=== PATIENT | female | born 1965 | race Caucasian/White ===

== ENCOUNTER 2018-10-05 03:59 | Emergency (ER) | payer MEDICAID ==
[~2018-10-05] VITALS: Ht 175.3 cm; Wt 113.8 kg
[~2018-10-05 03:59] MED LIST: HYDR25TA4 PO; METO-477 PO
[2018-10-05 04:11] VITALS: BP 200/116
[2018-10-05] MEDS ORDERED: bacitracin 15gm ointment TP ONE (04:35)
== END 2018-10-05 04:50 | disposition home or self-care (01) ==
LOC: ER 03:59
DX: S91.302A Unspecified open wound, left foot, initial encounter (principal); R60.0 Localized edema; I87.8 Other specified disorders of veins; I10 Essential (primary) hypertension; Z79.899 Other long term (current) drug therapy; Z90.49 Acquired absence of other specified parts of digestive tract; Z90.710 Acquired absence of both cervix and uterus; Z90.89 Acquired absence of other organs; W20.8XXA Other cause of strike by thrown, projected or falling object, initial encounter; Y93.89 Activity, other specified; Y92.89 Other specified places as the place of occurrence of the external cause; Y99.8 Other external cause status
CPT/HCPCS: 99282

== ENCOUNTER 2019-08-02 10:05 | Day surgery (SDC) | payer MEDICAID ==
[2019-08-02] MEDS ORDERED: LIDOcaine 2% 5ml jelly ONE ×2 (10:52→11:34)
== END 2019-08-02 12:04 | disposition home or self-care (01) ==
LOC: WOUND CARE 10:05
PROVIDERS: ATTEND Surgery
DX: I83.023 Varicose veins of left lower extremity with ulcer of ankle (principal); L97.322 Non-pressure chronic ulcer of left ankle with fat layer exposed; I10 Essential (primary) hypertension; I87.8 Other specified disorders of veins; F17.200 Nicotine dependence, unspecified, uncomplicated; Z90.710 Acquired absence of both cervix and uterus; Z90.49 Acquired absence of other specified parts of digestive tract; Z79.899 Other long term (current) drug therapy
CPT/HCPCS: 97597; A4663; A6021; A6154; A6441

== ENCOUNTER 2019-08-09 11:10 | Outpatient (CLI) | payer MEDICAID | END 2019-08-09 13:00 | disposition home or self-care (01) | LOC: WOUND CARE 11:10 | PROVIDERS: ATTEND Surgery | DX: I83.023 Varicose veins of left lower extremity with ulcer of ankle (principal); L97.322 Non-pressure chronic ulcer of left ankle with fat layer exposed; I10 Essential (primary) hypertension; I87.8 Other specified disorders of veins; F17.200 Nicotine dependence, unspecified, uncomplicated; Z90.710 Acquired absence of both cervix and uterus; Z90.49 Acquired absence of other specified parts of digestive tract; Z79.899 Other long term (current) drug therapy | CPT/HCPCS: 29581; 93970; A4663; A6021; A6154; A6441 ==

== ENCOUNTER 2019-08-16 11:05 | Day surgery (SDC) | payer MEDICAID ==
[2019-08-16] MEDS ORDERED: LIDOcaine 2% 5ml jelly ONE (12:06)
== END 2019-08-16 13:04 | disposition home or self-care (01) ==
LOC: WOUND CARE 11:05
PROVIDERS: ATTEND Surgery
DX: I83.023 Varicose veins of left lower extremity with ulcer of ankle (principal); L97.322 Non-pressure chronic ulcer of left ankle with fat layer exposed; I10 Essential (primary) hypertension; I87.8 Other specified disorders of veins; F17.200 Nicotine dependence, unspecified, uncomplicated; Z90.710 Acquired absence of both cervix and uterus; Z90.49 Acquired absence of other specified parts of digestive tract
CPT/HCPCS: 97597; A4663; A6021; A6154; A6441

== ENCOUNTER 2019-08-23 10:25 | Day surgery (SDC) | payer MEDICAID ==
[2019-08-23] MEDS ORDERED: LIDOcaine 2% 5ml jelly ONE ×2 (11:48→12:40)
== END 2019-08-23 12:59 | disposition home or self-care (01) ==
LOC: WOUND CARE 10:25
PROVIDERS: ATTEND Surgery
DX: I83.023 Varicose veins of left lower extremity with ulcer of ankle (principal); L97.322 Non-pressure chronic ulcer of left ankle with fat layer exposed; I10 Essential (primary) hypertension; I87.8 Other specified disorders of veins; F17.200 Nicotine dependence, unspecified, uncomplicated; Z90.710 Acquired absence of both cervix and uterus; Z90.49 Acquired absence of other specified parts of digestive tract; Z79.899 Other long term (current) drug therapy
CPT/HCPCS: 97597; A4663; A6021; A6154; A6446

== ENCOUNTER 2019-08-26 11:37 | Day surgery (SDC) | payer MEDICAID ==
[2019-08-26] MEDS ORDERED: LIDOcaine 2% 5ml jelly ONE (12:07)
[2019-08-26] MEDS ORDERED: mupirocin 2% ointment 22GM ONE (12:22)
== END 2019-08-26 12:38 | disposition home or self-care (01) ==
LOC: WOUND CARE 11:37
PROVIDERS: ATTEND Surgery
DX: I83.023 Varicose veins of left lower extremity with ulcer of ankle (principal); L97.322 Non-pressure chronic ulcer of left ankle with fat layer exposed; I10 Essential (primary) hypertension; I87.8 Other specified disorders of veins; F17.200 Nicotine dependence, unspecified, uncomplicated; Z90.710 Acquired absence of both cervix and uterus; Z90.49 Acquired absence of other specified parts of digestive tract; Z79.899 Other long term (current) drug therapy
CPT/HCPCS: 97597; A4663; A6021; A6154; A6441

== ENCOUNTER 2019-08-30 10:40 | Day surgery (SDC) | payer MEDICAID ==
[2019-08-30] MEDS ORDERED: LIDOcaine 2% 5ml jelly ONE (11:14)
== END 2019-08-30 12:05 | disposition home or self-care (01) ==
LOC: WOUND CARE 10:40
PROVIDERS: ATTEND Surgery
DX: I83.023 Varicose veins of left lower extremity with ulcer of ankle (principal); L97.322 Non-pressure chronic ulcer of left ankle with fat layer exposed; I10 Essential (primary) hypertension; I87.8 Other specified disorders of veins; F17.200 Nicotine dependence, unspecified, uncomplicated; Z90.710 Acquired absence of both cervix and uterus; Z90.49 Acquired absence of other specified parts of digestive tract; Z79.899 Other long term (current) drug therapy
CPT/HCPCS: A4663; A6021; A6154; A6441

== ENCOUNTER 2019-09-02 10:45 | Day surgery (SDC) | payer MEDICAID ==
[2019-09-02] MEDS ORDERED: LIDOcaine 2% 5ml jelly ONE (11:30)
== END 2019-09-02 12:05 | disposition home or self-care (01) ==
LOC: WOUND CARE 10:45
PROVIDERS: ATTEND Surgery
DX: I83.023 Varicose veins of left lower extremity with ulcer of ankle (principal); L97.322 Non-pressure chronic ulcer of left ankle with fat layer exposed; I10 Essential (primary) hypertension; I87.8 Other specified disorders of veins; F17.200 Nicotine dependence, unspecified, uncomplicated; Z90.710 Acquired absence of both cervix and uterus; Z90.49 Acquired absence of other specified parts of digestive tract; Z79.899 Other long term (current) drug therapy
CPT/HCPCS: 97597; A4663; A6154; A6441

== ENCOUNTER 2019-09-06 10:40 | Day surgery (SDC) | payer MEDICAID ==
[2019-09-06] MEDS ORDERED: LIDOcaine 2% 5ml jelly ONE (12:23)
== END 2019-09-06 13:20 | disposition home or self-care (01) ==
LOC: WOUND CARE 10:40
PROVIDERS: ATTEND Surgery
DX: I83.023 Varicose veins of left lower extremity with ulcer of ankle (principal); L97.322 Non-pressure chronic ulcer of left ankle with fat layer exposed; I10 Essential (primary) hypertension; I87.8 Other specified disorders of veins; F17.200 Nicotine dependence, unspecified, uncomplicated; Z90.710 Acquired absence of both cervix and uterus; Z90.49 Acquired absence of other specified parts of digestive tract; Z79.899 Other long term (current) drug therapy
CPT/HCPCS: A4663; A6021; A6154; A6441

== ENCOUNTER 2019-09-13 10:50 | Day surgery (SDC) | payer MEDICAID ==
[2019-09-13] MEDS ORDERED: LIDOcaine 2% 5ml jelly ONE (12:10)
== END 2019-09-13 12:53 | disposition home or self-care (01) ==
LOC: WOUND CARE 10:50
PROVIDERS: ATTEND Surgery
DX: I83.023 Varicose veins of left lower extremity with ulcer of ankle (principal); L97.322 Non-pressure chronic ulcer of left ankle with fat layer exposed; I10 Essential (primary) hypertension; I87.8 Other specified disorders of veins; F17.200 Nicotine dependence, unspecified, uncomplicated; Z90.710 Acquired absence of both cervix and uterus; Z90.49 Acquired absence of other specified parts of digestive tract; Z79.899 Other long term (current) drug therapy
CPT/HCPCS: 97597; A4663; A6021; A6154; A6441

== ENCOUNTER 2019-09-16 10:40 | Outpatient (CLI) | payer MEDICAID | END 2019-09-16 12:26 | disposition home or self-care (01) | LOC: WOUND CARE 10:40 | PROVIDERS: ATTEND Surgery | DX: I83.023 Varicose veins of left lower extremity with ulcer of ankle (principal); L97.322 Non-pressure chronic ulcer of left ankle with fat layer exposed; I10 Essential (primary) hypertension; I87.8 Other specified disorders of veins; F17.200 Nicotine dependence, unspecified, uncomplicated; Z90.710 Acquired absence of both cervix and uterus; Z90.49 Acquired absence of other specified parts of digestive tract; Z79.899 Other long term (current) drug therapy | CPT/HCPCS: 29581; A4663; A6021; A6154; A6441 ==

== ENCOUNTER 2019-09-20 10:47 | Day surgery (SDC) | payer MEDICAID ==
[2019-09-20] MEDS ORDERED: LIDOcaine 2% 5ml jelly ONE (11:43)
== END 2019-09-20 12:40 | disposition home or self-care (01) ==
LOC: WOUND CARE 10:47
PROVIDERS: ATTEND Surgery
DX: I83.023 Varicose veins of left lower extremity with ulcer of ankle (principal); L97.322 Non-pressure chronic ulcer of left ankle with fat layer exposed; I10 Essential (primary) hypertension; I87.8 Other specified disorders of veins; F17.200 Nicotine dependence, unspecified, uncomplicated; Z90.710 Acquired absence of both cervix and uterus; Z90.49 Acquired absence of other specified parts of digestive tract; Z79.899 Other long term (current) drug therapy
CPT/HCPCS: 15271; A6209; A6222; Q4101; A4663; A6250; A6441

== ENCOUNTER 2019-09-23 10:48 | Day surgery (SDC) | payer MEDICAID | END 2019-09-23 12:33 | disposition home or self-care (01) | LOC: WOUND CARE 10:48 | PROVIDERS: ATTEND Surgery | DX: I83.023 Varicose veins of left lower extremity with ulcer of ankle (principal); L97.322 Non-pressure chronic ulcer of left ankle with fat layer exposed; I10 Essential (primary) hypertension; I87.8 Other specified disorders of veins; F17.200 Nicotine dependence, unspecified, uncomplicated; Z90.710 Acquired absence of both cervix and uterus; Z90.49 Acquired absence of other specified parts of digestive tract; Z79.899 Other long term (current) drug therapy | CPT/HCPCS: 29581; A4663; A6441 ==

== ENCOUNTER 2019-09-27 10:31 | Day surgery (SDC) | payer MEDICAID ==
[2019-09-27] MEDS ORDERED: LIDOcaine 2% 5ml jelly ONE (12:08)
== END 2019-09-27 13:14 | disposition home or self-care (01) ==
LOC: WOUND CARE 10:31
PROVIDERS: ATTEND Surgery
DX: I83.023 Varicose veins of left lower extremity with ulcer of ankle (principal); L97.322 Non-pressure chronic ulcer of left ankle with fat layer exposed; I10 Essential (primary) hypertension; I87.8 Other specified disorders of veins; F17.200 Nicotine dependence, unspecified, uncomplicated; Z90.710 Acquired absence of both cervix and uterus; Z90.49 Acquired absence of other specified parts of digestive tract; Z79.899 Other long term (current) drug therapy
CPT/HCPCS: 29581; A4663; A6021; A6154; A6441

== ENCOUNTER 2019-09-30 10:37 | Day surgery (SDC) | payer MEDICAID ==
[2019-09-30] MEDS ORDERED: LIDOcaine 2% 5ml jelly ONE (12:04)
[2019-09-30] MEDS ORDERED: hydrocortisone 1% cream 28gm TP ONE (12:44)
== END 2019-09-30 13:00 | disposition home or self-care (01) ==
LOC: WOUND CARE 10:37
PROVIDERS: ATTEND Surgery
DX: I83.023 Varicose veins of left lower extremity with ulcer of ankle (principal); L97.322 Non-pressure chronic ulcer of left ankle with fat layer exposed; I10 Essential (primary) hypertension; I87.8 Other specified disorders of veins; F17.200 Nicotine dependence, unspecified, uncomplicated; Z90.710 Acquired absence of both cervix and uterus; Z90.49 Acquired absence of other specified parts of digestive tract; Z79.899 Other long term (current) drug therapy
CPT/HCPCS: 97597; A4663; A6021; A6154; A6441

== ENCOUNTER 2019-10-06 10:37 | Day surgery (SDC) | payer MEDICAID ==
[2019-10-06] MEDS ORDERED: LIDOcaine 2% 5ml jelly ONE (10:51)
== END 2019-10-06 11:52 | disposition home or self-care (01) ==
LOC: WOUND CARE 10:37
PROVIDERS: ATTEND Surgery
DX: I83.023 Varicose veins of left lower extremity with ulcer of ankle (principal); L97.322 Non-pressure chronic ulcer of left ankle with fat layer exposed; I10 Essential (primary) hypertension; I87.2 Venous insufficiency (chronic) (peripheral); F17.200 Nicotine dependence, unspecified, uncomplicated; Z90.710 Acquired absence of both cervix and uterus; Z90.49 Acquired absence of other specified parts of digestive tract; Z79.899 Other long term (current) drug therapy
CPT/HCPCS: 97597; A4663; A6021; A6154; A6441

== ENCOUNTER 2019-10-14 10:48 | Day surgery (SDC) | payer MEDICAID ==
[2019-10-14] MEDS ORDERED: LIDOcaine 2% 5ml jelly ONE (11:21)
== END 2019-10-14 12:41 | disposition home or self-care (01) ==
LOC: WOUND CARE 10:48
PROVIDERS: ATTEND Surgery
DX: I83.023 Varicose veins of left lower extremity with ulcer of ankle (principal); L97.322 Non-pressure chronic ulcer of left ankle with fat layer exposed; I10 Essential (primary) hypertension; I87.2 Venous insufficiency (chronic) (peripheral); F17.200 Nicotine dependence, unspecified, uncomplicated; Z90.710 Acquired absence of both cervix and uterus; Z90.49 Acquired absence of other specified parts of digestive tract; Z79.899 Other long term (current) drug therapy
CPT/HCPCS: 15271; A6209; A6222; Q4101; A4663; A6250; A6441

== ENCOUNTER 2019-10-21 10:20 | Outpatient (CLI) | payer MEDICAID ==
[2019-10-21] MEDS ORDERED: hydrocortisone 1% cream 28gm TP ONE (11:13)
== END 2019-10-21 11:28 | disposition home or self-care (01) ==
LOC: WOUND CARE 10:20 → EDSTATUS 10:30 → WOUND CARE 11:28
PROVIDERS: ATTEND Surgery
DX: I83.023 Varicose veins of left lower extremity with ulcer of ankle (principal); L97.322 Non-pressure chronic ulcer of left ankle with fat layer exposed; I10 Essential (primary) hypertension; I87.2 Venous insufficiency (chronic) (peripheral); F17.200 Nicotine dependence, unspecified, uncomplicated; Z90.710 Acquired absence of both cervix and uterus; Z90.49 Acquired absence of other specified parts of digestive tract; Z79.899 Other long term (current) drug therapy
CPT/HCPCS: 29581; A6222; A4663; A6441

== ENCOUNTER 2019-10-28 10:10 | Outpatient (CLI) | payer MEDICAID | END 2019-10-28 10:50 | disposition home or self-care (01) | LOC: WOUND CARE 10:10 | PROVIDERS: ATTEND Surgery | DX: I83.023 Varicose veins of left lower extremity with ulcer of ankle (principal); L97.322 Non-pressure chronic ulcer of left ankle with fat layer exposed; I10 Essential (primary) hypertension; I87.2 Venous insufficiency (chronic) (peripheral); F17.200 Nicotine dependence, unspecified, uncomplicated; Z90.710 Acquired absence of both cervix and uterus; Z90.49 Acquired absence of other specified parts of digestive tract; Z79.899 Other long term (current) drug therapy | CPT/HCPCS: A4663; G0463 ==

== ENCOUNTER 2019-10-30 02:09 | Emergency (ER) | payer MEDICAID ==
[~2019-10-30] VITALS: Ht 175.3 cm; Wt 112.8 kg
[2019-10-30 05:38] VITALS: BP 180/97
--- NOTE | 2019-10-30 06:39 | NUR ---
NOTICED PT AND LEAVING THE ER, APPROCHED THEM ASKED THEM IF SHE HAD BEEN DC FROM THE ER. THE PT WAS OUTSIDE AND THE STATES SHE WAS DISCHARGED AND THEY JUST SIGNED HER PAPERWORK. PER REG ALL PAPERWORK HAS BEEN SIGNED FOR THEM. NOTIFIED DR KINCAID TO INQUIRE IF PT HAS BEEN DCD HE STATES HE JUST WENT IN TO SEE HE AND JUST PLACED ORDERS. PT ELOPED
== END 2019-10-30 07:11 | disposition left against medical advice (07) ==
LOC: ER 02:09
DX: I87.8 Other specified disorders of veins (principal); L97.328 Non-pressure chronic ulcer of left ankle with other specified severity; I10 Essential (primary) hypertension; F17.200 Nicotine dependence, unspecified, uncomplicated; Z90.49 Acquired absence of other specified parts of digestive tract; Z90.710 Acquired absence of both cervix and uterus; Z90.89 Acquired absence of other organs; Z79.899 Other long term (current) drug therapy
CPT/HCPCS: 99281

== ENCOUNTER 2019-11-10 05:20 | Emergency (ER) | payer MEDICAID ==
[~2019-11-10] VITALS: Ht 172.7 cm; Wt 102.3 kg
[2019-11-10 05:22] VITALS: BP 174/118
[2019-11-10] MEDS ORDERED: CEPH500C5 PO (06:20)
[2019-11-10] MEDS ORDERED: PRED20TA PO (06:20)
[2019-11-10] MEDS ORDERED: SULF1TAB49 PO (06:20)
== END 2019-11-10 06:41 | disposition home or self-care (01) ==
LOC: ER 05:21
DX: L03.116 Cellulitis of left lower limb (principal); L97.929 Non-pressure chronic ulcer of unspecified part of left lower leg with unspecified severity; I10 Essential (primary) hypertension; F17.200 Nicotine dependence, unspecified, uncomplicated; Z90.49 Acquired absence of other specified parts of digestive tract; Z90.710 Acquired absence of both cervix and uterus; Z98.51 Tubal ligation status; Z79.899 Other long term (current) drug therapy
CPT/HCPCS: 99283

== ENCOUNTER 2019-11-29 10:15 | Day surgery (SDC) | payer MEDICAID ==
[2019-11-29] MEDS ORDERED: hydrocortisone 1% cream 28gm TP ONE (12:14)
== END 2019-11-29 12:30 | disposition home or self-care (01) ==
LOC: WOUND CARE 10:15
PROVIDERS: ATTEND Surgery
DX: I83.023 Varicose veins of left lower extremity with ulcer of ankle (principal); L97.322 Non-pressure chronic ulcer of left ankle with fat layer exposed; I10 Essential (primary) hypertension; I87.2 Venous insufficiency (chronic) (peripheral); F17.200 Nicotine dependence, unspecified, uncomplicated; Z90.710 Acquired absence of both cervix and uterus; Z90.49 Acquired absence of other specified parts of digestive tract; Z79.899 Other long term (current) drug therapy
CPT/HCPCS: 97597; A4663; A6021; A6154; A6441

== ENCOUNTER 2019-12-05 11:42 | Emergency (ER) | payer MEDICAID ==
[~2019-12-05] VITALS: Ht 172.7 cm; Wt 113.6 kg
[2019-12-05 11:44] VITALS: BP 184/102
[2019-12-05] MEDS ORDERED: triamcinolone acetonide 40mg/ml inj IM ONE (12:20)
[2019-12-05] MEDS ORDERED: PRED20TA PO (12:54)
== END 2019-12-05 13:19 | disposition home or self-care (01) ==
LOC: ER 11:42
DX: I87.2 Venous insufficiency (chronic) (peripheral) (principal); L97.321 Non-pressure chronic ulcer of left ankle limited to breakdown of skin; R21 Rash and other nonspecific skin eruption; I10 Essential (primary) hypertension; Z90.49 Acquired absence of other specified parts of digestive tract; Z90.710 Acquired absence of both cervix and uterus; Z98.890 Other specified postprocedural states; Z79.899 Other long term (current) drug therapy
CPT/HCPCS: 36415; 85651; 86140; 96372; 99283; J3301

== ENCOUNTER 2019-12-06 10:50 | Day surgery (SDC) | payer MEDICAID ==
[~2019-12-06 10:50] MED LIST changes: +PRED20TA PO
== END 2019-12-06 12:46 | disposition home or self-care (01) ==
LOC: WOUND CARE 10:50
PROVIDERS: ATTEND Surgery
DX: I83.023 Varicose veins of left lower extremity with ulcer of ankle (principal); L97.322 Non-pressure chronic ulcer of left ankle with fat layer exposed; I10 Essential (primary) hypertension; I87.2 Venous insufficiency (chronic) (peripheral); F17.200 Nicotine dependence, unspecified, uncomplicated; Z90.710 Acquired absence of both cervix and uterus; Z90.49 Acquired absence of other specified parts of digestive tract; Z79.899 Other long term (current) drug therapy
CPT/HCPCS: 97597; A4663; A6021; A6154; A6446

== ENCOUNTER 2019-12-13 11:05 | Day surgery (SDC) | payer MEDICAID ==
[~2019-12-13 11:05] MED LIST changes: -PRED20TA PO
== END 2019-12-13 12:43 | disposition home or self-care (01) ==
LOC: WOUND CARE 11:05
PROVIDERS: ATTEND Surgery
DX: I83.023 Varicose veins of left lower extremity with ulcer of ankle (principal); L97.322 Non-pressure chronic ulcer of left ankle with fat layer exposed; I10 Essential (primary) hypertension; I87.2 Venous insufficiency (chronic) (peripheral); F17.200 Nicotine dependence, unspecified, uncomplicated; Z90.710 Acquired absence of both cervix and uterus; Z90.49 Acquired absence of other specified parts of digestive tract; Z79.899 Other long term (current) drug therapy
CPT/HCPCS: 29581

== ENCOUNTER 2020-05-26 11:30 | Day surgery (SDC) | payer MEDICAID ==
[2020-05-26] MEDS ORDERED: LIDOcaine 2% 5ml jelly ONE (11:49)
== END 2020-05-26 12:21 | disposition home or self-care (01) ==
LOC: WOUND CARE 11:30
PROVIDERS: ATTEND Nurse Practitioner
DX: I83.023 Varicose veins of left lower extremity with ulcer of ankle (principal); L97.322 Non-pressure chronic ulcer of left ankle with fat layer exposed; I10 Essential (primary) hypertension; I87.2 Venous insufficiency (chronic) (peripheral); F17.210 Nicotine dependence, cigarettes, uncomplicated; Z79.899 Other long term (current) drug therapy; Z90.710 Acquired absence of both cervix and uterus; Z90.49 Acquired absence of other specified parts of digestive tract; Z98.890 Other specified postprocedural states
CPT/HCPCS: 97597

== ENCOUNTER 2020-10-21 01:40 | Emergency (ER) | payer MEDICAID ==
[~2020-10-21] VITALS: Ht 175.3 cm; Wt 113.0 kg
[2020-10-21] MEDS ORDERED: ASPI81TA52 PO (02:07)
[2020-10-21] MEDS ORDERED: LISI-600 PO (02:07)
--- NOTE | 2020-10-21 02:08 | NUR ---
PT GOING TO CT VIA WC
[2020-10-21 02:29] LABS: BASOPHILS # (AUTO) 0.1 X10'3 (0-0.2); BASOPHILS % (AUTO) 0.7 % (0-1); EOSINOPHILS # (AUTO) 0.1 X10'3 (0-0.9); HEMATOCRIT 45.1 % (35.0-45.0); LYMPHOCYTES # (AUTO) 3.2 X10'3 (1.1-4.8); LYMPHOCYTES % (AUTO) 26.6 % (21-51); MEAN CORPUSCULAR HEMOGLOBIN 29.4 PG (27.0-31.0); MEAN CORPUSCULAR HGB CONC 33.3 g/dL (33.0-36.5); MEAN CORPUSCULAR VOLUME 88.3 FL (78-98); MEAN PLATELET VOLUME 8.6 FL (7.4-10.4); MONOCYTES % (AUTO) 8.7 % (2-12); NEUTROPHILS # (AUTO) 7.5 X10'3 (1.8-7.7); PLATELET COUNT 270 X10'3 (140-440); RED BLOOD COUNT 5.11 X10'6 (4.20-5.60); RED CELL DISTRIBUTION WIDTH 13.9 % (11.5-14.5)
[2020-10-21] MEDS ORDERED: aspirin 325mg tablet PO ONE (02:35)
[2020-10-21 02:44] LABS: PARTIAL THROMBOPLASTIN TIME 29 SECONDS (22-32)
[2020-10-21 03:20] LABS: ALANINE AMINOTRANSFERASE 43 U/L (12-78); ALBUMIN 3.4 G/DL (3.4-5.0); ALBUMIN/GLOBULIN RATIO 0.9 (1.1-1.5); ALKALINE PHOSPHATASE 92 IU/L (46-116); ANION GAP 10 (8-16); ASPARTATE AMINO TRANSFERASE 25 U/L (10-37); BILIRUBIN,TOTAL 0.2 MG/DL (0.1-1.0); BLOOD UREA NITROGEN 12 MG/DL (7-18); BUN/CREATININE RATIO 12.1 (6.6-38.0); CALCIUM 9.1 MG/DL (8.5-10.1); CHLORIDE 105 MMOL/L (99-107); CREATININE 0.99 MG/DL (0.40-0.90); GLUCOSE 203 MG/DL (70-104); POTASSIUM 3.6 MMOL/L (3.5-5.1); SODIUM 140 MMOL/L (135-145); TOTAL CARBON DIOXIDE 25.3 MMOL/L (24-32); TOTAL PROTEIN 7.4 G/DL (6.4-8.2); eGFR 59 ML/MIN
[2020-10-21 03:22] LABS: TROPONIN I < 0.04 NG/ML (0.0-0.05)
[2020-10-21] MEDS ORDERED: AMLO10TA48 PO (04:16)
[2020-10-21 04:42] VITALS: BP 181/114
[2020-10-21 05:10] LABS: D-DIMER 0.52 MG/L FEU (0-0.50)
[2020-10-21 05:12] LABS: CHOL/HDL RATIO 3.6 (0.00-4.99); CHOLESTEROL 180 MG/DL (0-200); HDL CHOLESTEROL 50 MG/DL (35-60); LDL CHOLESTEROL 114 MG/DL (50-100); TRIGLYCERIDES 154 MG/DL (20-135)
== END 2020-10-21 04:43 | disposition left against medical advice (07) ==
LOC: ER 01:41
DX: I63.9 Cerebral infarction, unspecified (principal); Z20.828 Contact with and (suspected) exposure to other viral communicable diseases; R20.0 Anesthesia of skin; R53.1 Weakness; I10 Essential (primary) hypertension; Z53.29 Procedure and treatment not carried out because of patient's decision for other reasons; Z68.36 Body mass index [BMI] 36.0-36.9, adult; Z90.89 Acquired absence of other organs; Z90.710 Acquired absence of both cervix and uterus; Z79.82 Long term (current) use of aspirin; Z79.899 Other long term (current) drug therapy
CPT/HCPCS: 36415; 70450; 71045; 80053; 80061; 84484; 85025; 85379; 85610; 85730; 87635; 93005; 99285; C9803